=== PATIENT | male | born 1955 | race Caucasian/White ===

== ENCOUNTER 2023-09-23 07:05 | Outpatient (RCR) | payer MEDICARE, SELFPAY | END 2023-09-23 08:50 | disposition home or self-care (01) | LOC: RPT 07:05 | PROVIDERS: ATTENDING PHYSICIAN Physician Assistant Surgical; PRIMARYCARE PHYSICIAN Internal Medicine | DX: Z47.89 Encounter for other orthopedic aftercare (principal); M25.512 Pain in left shoulder (principal); Z73.6 Limitation of activities due to disability | CPT/HCPCS: 97010; 97110; 97140 ==

== ENCOUNTER 2024-10-06 06:22 | Day surgery (SDC) | payer MEDICARE, SELFPAY | END 2024-10-06 09:08 | disposition home or self-care (01) | LOC: GI 06:22 | PROVIDERS: ATTENDING PHYSICIAN Student in an Organized Health Care Education/Training Program | DX: Z12.11 Encounter for screening for malignant neoplasm of colon (principal); K57.30 Diverticulosis of large intestine without perforation or abscess without bleeding; K64.0 First degree hemorrhoids; K64.4 Residual hemorrhoidal skin tags; D12.3 Benign neoplasm of transverse colon; D12.0 Benign neoplasm of cecum; D12.2 Benign neoplasm of ascending colon; K63.5 Polyp of colon; K62.1 Rectal polyp; Z86.0100 Personal history of colon polyps, unspecified | CPT/HCPCS: 45385; 45380; 88305 ==

== ENCOUNTER → 2025-03-12 08:22 | Outpatient (REF) | payer MEDICARE, SELFPAY | LOC: RCS 08:22 | PROVIDERS: ATTENDING PHYSICIAN Psychiatry & Neurology Neurology; FAMILY PHYSICIAN Internal Medicine | DX: R01.1 Cardiac murmur, unspecified (principal); R42 Dizziness and giddiness | CPT/HCPCS: 93005 ==

== ENCOUNTER → 2025-03-18 07:16 | Outpatient (REF) | payer MEDICARE, SELFPAY | LOC: RCS 07:16 | PROVIDERS: ATTENDING PHYSICIAN Psychiatry & Neurology Neurology; FAMILY PHYSICIAN Internal Medicine | DX: R01.1 Cardiac murmur, unspecified (principal) | CPT/HCPCS: 93306 ==

== ENCOUNTER 2025-04-06 14:57 | Inpatient (IN) | payer MEDICARE, SELFPAY ==
[2025-04-06] VITALS (12 sets, daily range): BP systolic 121–153; BP diastolic 72–85
[2025-04-06 12:14] LABS: Glucose - Point of Care 100 mg/dl (70-99)
[2025-04-06 12:36] LABS: Glucose - Point of Care 95 mg/dl (70-99)
[2025-04-06 12:41] LABS: Hematocrit 39.7 % (39.0-52.0); Hemoglobin 13.5 g/dL (13.0-18.0); Mean Corp Hgb Conc. 34.0 g/dL (33.0-37.0); Mean Corpuscular Volume 98.5 fL (80.0-94.0); Nucleated Red Blood Cells % 0 % (-); Platelet Count 179 10^3/uL (130-400); Red Cell Dist. Width 13.0 % (11.5-14.5)
--- NOTE | 2025-04-06 12:43 | CON.NEURO ---
Neuro Assessment/Plan
Assessment
Acute onset dysarthria with right upper and lower extremity tingling and prolonged history of dizziness and slurred speech. Differential diagnosis includes phenytoin toxicity as well as acute ischemic stroke. Due to the patient's low NIH score,
the patient was not a candidate for either tenecteplase or intra-arterial thrombectomy.
Plan
Check CT angiogram, done
Check phenytoin level
Load patient with aspirin then 81 mg routinely
Load patient with clopidogrel 300 mg, then 75 mg routinely
Permissive hypertension up to 220/120
Check MRI of brain
Check lipid profile with goal of LDL less than 70, if LDL greater than 70, start atorvastatin 80 mg daily
Continue phenytoin until levels is available
Total Critical Care Time=�40 minutes.
The neurological system is affected and the action required by me to prevent further deterioration or potential was control over the item listed first in the Impressions and Recommendations section of this note.
I was present and personally examined the patient.� I discussed patient care with other professional health care providers.
Also discussed with family.
Will follow
Consultation
Order
Date of Consultation: 04/06/25
Requesting Provider: Emergency department
Reason for Consult: Stroke alert
Subjective/Objective
Subjective Data
Date of Service: April 06, 2025
Right handed
Patient presented to this [facility]'s emergency department by EMS due to new onset slurred speech and dizziness. The patient also reports that he began experiencing right upper and lower extremity tingling at 1000 hrs. this morning. The patient
began having symptoms 3 weeks ago which time he was having episodic dizziness. This followed his last evaluation by his usual neurologist 4 weeks ago at which time underwent routine reevaluation. In January of this year the patient had an alteration
in his usual phenytoin dosing from brand name to generic at which time his level markedly increased prompting a lowering of his dosing and resolution of symptoms. Symptoms prior to that were a sense of dizziness which was recurrent after seeing his
neurologist.
1 week ago, the patient also had an episode of slurred speech which lasted for short period of time and then spontaneously resolved without residual.
Today, the patient woke up at 0600 hrs. without symptoms developing them as above. The patient has no involvement of the contralateral side. No known modifying factors. The patient is not aware of slurred speech although his who accompanies
him indicates that he is experiencing slurred speech.
Objective Data
Vital Signs
Temp Pulse Resp BP Pulse Ox
36.6 C 82 20 146/81 98
04/06/25 12:12 04/06/25 12:37 04/06/25 12:37 04/06/25 12:37 04/06/25 12:37
Lab Results
04/06/25 12:35
Patient Allergies
No Known Allergies Allergy (Verified 04/19/23 10:45)
CVA Assessment
Onset of Stroke Symptoms
Onset of symptoms known: Yes
Date of onset of symptoms: 04/06/25
Time of onset of symptoms: 10:00
Time pt last seen normal is known: Yes
Date last time pt seen normal: 04/06/25
Time last time pt seen normal: 06:00
NIH Stroke Score
Level of Consciousness: 0 - Alert
LOC Questions: 0-Answers both correctly
LOC Commands: 0-Performs both correctly
Best Horizontal Gaze: 0-Normal
Visual Benítez: 0=Normal, no visual loss
Facial Palsy: 0=Normal, symmetrical
Motor - Right Arm: 0=No drift 10 seconds
Motor - Left Arm: 0=No drift 10 seconds
Motor - Right Le-No drift 5 seconds
Motor - Left Le-No drift 5 seconds
Limb Ataxia: 0-Absent
Sensation: 0-Normal
Best Language: 0-No aphasia
Dysarthria: 1-Mild slurring
Extinction and Inattention: 0-No abnormality
NIH Total Score:: 1
Tenecteplase Contraindications
Inclusion and Exclusion criteria reviewed: Yes
IAT Contraindications: Imaging doesn't show large vessel occlusion as cause of stroke
Review of Systems
-
History Source: Patient
All other systems: Reviewed and negative
EENT: Negative Blurry Vision or Swallowing Difficulty
Respiratory: Negative Trouble Breathing
Cardiac: Negative Chest Pain
Abdomen/GI: Negative Incontinence of Stool
Genitourinary: Negative Incontinence
Musculoskeletal: Negative Back Pain or Neck Pain
Neuro: Negative Dizzy or Headache
Physical Exam
-
General: No Apparent Distress and Appears Stated Age
Eyes: OU Absent Papilledema, Round OU, [place] Conjunctivae and No Ptosis
HEENT: Anicteric and Moist Mucous Membranes
Neck: Full Range of Motion
Respiratory: No Dyspnea
Cardiac: No JVD
GI: Non-distended
Skin: Unremarkable
Extremities: No Clubbing, No Cyanosis and No Edema
Psych: Intact Judgement/Insight
Extended Neurological Exam
Mood & Affect: Mood Unremarkable and Affect Unremarkable
Attention Span & Concentration: Awake, Alert, Interactive and No Difficulty with 2 Step Request
Memory: Unremarkable
Tremor: Hand Tremor Absent and Head Tremor Absent
Speech: Quantity Unremarkable and Dysarthric (Minimally)
Cranial Nerve II: Left Eye: Pupillary Reactivity Unremarkable, Pupillary Size Unremarkable and Visual Benítez Intact
Cranial Nerve II: Right Eye: Pupillary Reactivity Unremarkable, Pupillary Size Unremarkable and Visual Benítez Intact
Cranial Nerves III, IV, : Extraocular Movement: Extraocular Movement Full in all Directions
Cranial Nerve VII: Facial Symmetry: Normal Facial Symmetry
Cranial Nerve VIII: Hearing: Unremarkable Hearing to Normal Conversational Volume
Cranial Nerves IX, X: Palate Movement: Palate Elevation Symmetric
Cranial Nerve XI: Shoulder Shrug: Unremarkable
Cranial Nerve XII: Tongue Protusion: Midline
Muscle Strength, Overall: Full Throughout
Muscle Bulk & Tone: Bulk Unremarkable and Tone Unremarkable
Pronator Drift: No Drift in Upper Extremities
Deep Tendon Reflexes: Unremarkable Throughout
Touch Sensation: Unremarkable
Coordination: Glwfkz-basz-lwdtte Testing Unremarkable
Babinski Sign: Absent Bilaterally
Data Reviewed
-
CT-A: Report Reviewed and Image Reviewed
CT Head: Report Reviewed and Image Reviewed
MRI Head: Ordered
Labs: Report Reviewed
Lipid Profile: Ordered and Report Reviewed
Reviewed with: Physician, Nurse, Patient and Family
Old Records: Summarized
Medications
-
Active Medications
Generic Name Dose Route Start Last Admin
Trade Name Freq PRN Reason Stop Dose Admin
Aspirin 325 mg 04/06/25 12:39
Aspirin 325 Mg Tablet PO 04/06/25 12:40
NOW STA
Aspirin 81 mg 04/07/25 08:00
Aspirin 81 Mg (Enteric Coated) Tablet PO 05/05/25 07:59
DAILY HANNA
Clopidogrel Bisulfate 75 mg 04/07/25 08:00
Clopidogrel 75 Mg Tablet PO 04/27/25 08:01
DAILY HANNA
Clopidogrel Bisulfate 300 mg 04/06/25 12:39
Clopidogrel 300 Mg Tablet PO 04/06/25 12:40
NOW STA
Home Medications
�Medication �Instructions �Recorded
phenytoin sodium extended 100 mg 100 mg PO DAILY 04/17/23
capsule (Dilantin Kapseal)
phenytoin sodium extended 100 mg 200 mg PO HS 04/17/23
capsule (Dilantin Kapseal)
Past History
Past History
ED Past Medical History: Seizures
[2025-04-06] MEDS: ASPIRIN 325 MG PO (12:51)
[2025-04-06] MEDS: PLAVIX 300 MG PO (12:51)
--- NOTE | 2025-04-06 12:54 | HPS.HSE ---
Addendum entered and electronically signed by Mayte Ferrera MD 04/06/25 14:47:
This is an addendum to H&P written by Mg Zee. �Patient seen and examined independently with resident.
70-year-old male past medical history of hyperlipidemia, seizure disorder, BPH, colonic polyps, presenting with slurred speech starting this morning at 10 AM with right arm and leg weakness. �Chronic lightheadedness for 6 weeks worked up with EKG
and echocardiogram. �Echocardiogram showed mild aortic stenosis.
Symptoms improved but continues to have some slurred speech.
Vital signs normal. �EKG unremarkable
Labs unremarkable.
CT head shows no acute intracranial hemorrhage. �Small chronic infarct with encephalomalacia along the superior margin of the right cerebral hemisphere. �4 mm focus of diminished attenuation of the left paramidline central prema. �Suspicious for
small infarct. �CTA head and neck shows small filling defect within the distal left middle cerebral M1 segment with distal blood flow identified opacifying the more distal middle cerebral artery segments consistent with nonocclusive thrombus.
Aspirin and Plavix. �MRI brain. �Check A1c. �Check speech and swallow. �PT OT.
Check orthostatic vital signs due to lightheadedness for past few weeks.
Original Note:
Family Physician
-
Family Physician:
Chief Complaint
-
Slurred speech
History of Present Illness
This is a 70-year-old male with past medical history of hyperlipidemia, seizure disorder, aortic valve stenosis, BPH, colonic polyps who presents to ED complaining of slurred speech that started this morning at 10 AM. History was obtained at
bedside with present as well. Prior to this event, the patient's reports he was last seen normal at his typical baseline. In addition to the slurred speech, patient reports right-sided weakness upper and lower extremity. He denies
numbness, denies tingling sensation. He had no episodes of confusion, denies vision changes. Denies severe headache. Reports he was able to ambulate per usual. Patient reports he has been experiencing lightheadedness for the past 6 weeks. He
was recently evaluated by his neurologist for episodic dizziness with an echocardiogram and ECG for these dizzy spells. Upon presentation to the ED, vitals with BP 138/72, pulse 78, respiratory 16, O2 sats 100% on room air. NIH stroke scale was 1
Medical History
Past Medical History
Past Medical History: Reports Other (Hyperlipidemia, seizure disorder, aortic valve stenosis, BPH, colonic polyps, Glaucoma)
Past Surgical History: Reports None
Social History
Tobacco: Non-smoker
Alcohol: None
Drug: None
Personal:
Living: With Family
Employment: Employed
Family History
Family History: Not pertinent
Allergies / Home Medications
Allergies reflects when Allergies were last updated in [facility].
Home Medications with original date entered in [facility]
Allergy/Medication List:
Allergies
Allergy/AdvReac Type Severity Reaction Status Date / Time
No Known Allergies Allergy Verified 04/19/23 10:45
Home Medications
phenytoin sodium extended 100 mg capsule (Dilantin Extended) 100 mg PO DAILY 04/06/25
phenytoin sodium extended 100 mg capsule (Dilantin Extended) 200 mg PO HS 04/06/25
travoprost 0.004 % eye drops 1 drp BOTH EYES QPM 04/06/25
Review of Systems
-
Constitutional: Reports Other (All review of systems completed and negative except as documented in HPI)
Physical Exam
Vital Signs
Vital Signs
Temp Pulse Resp BP Pulse Ox
98 F 82 20 146/81 98
04/06/25 12:12 04/06/25 12:37 04/06/25 12:37 04/06/25 12:37 04/06/25 12:37
Physical Exam
General: Well Developed, Well Nourished and No Apparent Distress
HEENT: NormoCephalic
Respiratory: Clear; No Wheezes, Rales or Rhonchi
Cardiac: S1/S2, Regular Rhythm and Murmur
GI: Soft, Non Tender, Non Distended and Normal Bowel Sounds
Musculoskeletal: No Edema and Other (5/5 muscular strength bilateral upper and lower extremity)
Skin: Warm
Neuro: Awake, Alert, Oriented and AO x 3; No Slurred Speech or Facial Droop
Psych: Calm
Laboratory Results
-
04/06/25 12:35
Impression/Plan
-
Assessment/plan
#Right-sided weakness and dysarthria concern for CVA/TIA
-CT head without contrast- No acute intracranial hemorrhage. No CT evidence to suggest MCA distribution infarct. Aspect score: 10. Small chronic infarct with encephalomalacia along superior margin of the right cerebellar hemisphere. 4 mm focus of
diminished attenuation in the left paramidline central prema. Suspicious for small infarct, age indeterminate.
-Head and neck CTA-Small filling defect in the distal left middle cerebral artery M1 segment, with distal blood flow identified opacifying the more distal middle cerebral artery segments, consistent with nonocclusive thrombus.
-Neurology input appreciated, no indication for TNK
-Aspirin and Plavix administered in ED
-Continue on Aspirin+Plavix
-Statin therapy
-Check brain MRI
-Check lipids
-PT/OT
-Echo 03/18/2025- No regional wall motion abnormalities are seen. LV ejection fraction is 55-60%. Mild aortic stenosis.
#History of seizures
-Continue phenytoin
#Glaucoma
-Continue Eye drop
CODE STATUS full code
DVT prophylaxis SCDs
[2025-04-06 12:59] LABS: Blood Urea Nitrogen 12 mg/dl (9-20); Calcium 9.0 mg/dl (8.4-10.2); Carbon Dioxide 28 mmol/L (22-30); Chloride 103 mmol/L (98-107); Glucose 96 mg/dl (70-99); Potassium 4.1 mmol/L (3.5-5.1); Sodium 137 mmol/L (135-145); eGFR > 60.00
[2025-04-06 13:25] LABS: HDL Cholesterol 68 mg/dl; LDL Cholesterol, Calculated 156 mg/dl; Very Low Density Lipoprotein 19 mg/dl (0-30)
--- NOTE | 2025-04-06 13:41 | ED.CVA ---
History of Present Illness
General
Chief Complaint: CVA/TIA Symptoms
Source: patient and spouse
Time Seen by Provider: 04/06/25 12:23
Onset of Stroke Symptoms
Onset of symptoms known: Yes
Date of onset of symptoms: 04/05/25
Time of onset of symptoms: 22:00
History of Present Illness
History of Present Illness:
70-year-old male presents with disequilibrium. Has been intermittent for a week but comes and goes. Last episode started last evening late in the evening. Persisted overnight into this morning. Around 10 AM per the patient, 9 AM per the ,
they noted some slurred speech. Patient states he also noted some mild right sided weakness which the did not notice or was not expressed to her. Patient is on Dilantin for remote history of seizures. He had a previous episode of
disequilibrium that was possibly felt to be related to his Dilantin
Past History
Past History
ED Past Medical History: Seizures
ED Past Surgical History: Orthopedic
Review of Systems
Review of Systems
All Other Systems: Not applicable
Respiratory: Reports no symptoms
Cardiac: Reports no symptoms
ABD/GI: Reports no symptoms
Phy Exam
Physical Exam
Physical Exam:
GENERAL: Alert and oriented in no apparent distress
EYE: Orbits normal.
NECK: Supple
CARDIAC: Regular rate and rhythm without any obvious murmurs.
LUNGS: Clear breath sounds,normal
ABDOMEN: Soft, without focal tenderness or distention
NEUROLOGICAL: Alert and oriented , cranial nerves II through XII intact except for mild slurred speech. Slightly poor [id number]-by-qfuk to the right. No drift. Good french comber. Good lower extremity strength. Eye confrontation normal.
SKIN: Warm and dry, no rash or lesion, no discoloration, skin intact.
MUSCULOSKELETAL: No edema,no deformity.Good color
PSYCH: Normal and appropriate interaction.
Scores
NIH Stroke Score
Level of Consciousness: 0 - Alert
LOC Questions: 0-Answers both correctly
LOC Commands: 0-Performs both correctly
Best Horizontal Gaze: 0-Normal
Visual Benítez: 0=Normal, no visual loss
Facial Palsy: 0=Normal, symmetrical
Motor - Right Arm: 0=No drift 10 seconds
Motor - Left Arm: 0=No drift 10 seconds
Motor - Right Le-No drift 5 seconds
Motor - Left Le-No drift 5 seconds
Limb Ataxia: 1-Present in one limb
Sensation: 0-Normal
Best Language: 1-Mild aphasia
Dysarthria: 0-Normal
Extinction and Inattention: 0-No abnormality
NIH Total Score:: 2
Course
Orders/Labs/Results
Orders:
Orders
04/06/25 12:20
CT HEAD/NECK ANG STROKE ALERT Urgent
Comment:
Reason For Exam: R sided weakness, dizziness
04/06/25 12:21
CT HEAD STROKE ALERT W/o Cont Urgent
Comment:
Reason For Exam: R sided weakness, dizziness
04/06/25 12:23
Electrocardiogram (*1) Stat
Reason for Study: Other
Other Reason for Exam: neuro symptoms
Cardiac Monitoring- Treatment ONCE
EKG- Treatment ONCE
IV Insert/Care/Rem.- Treatment PRN
Pulse Ox/cont/shift [RESP] Stat
Quantity: 1
04/06/25 12:35
Basic Metabolic Panel Urgent
Cardiovascular Evaluation Urgent
Comment: CVE ADDED ON BY FLOOR 1PM 04-06-25
Complete Blood Count/With Diff Urgent
Dilantin Urgent
04/06/25 12:39
Aspirin 325 mg PO NOW STA
Clopidogrel Bisulfate [Plavix] 300 mg PO NOW STA
04/06/25 12:42
MR Brain Without Contrast Routine
Comment:
Reason For Exam: ? aphasia
Recent pill cam endoscopy?: No
04/06/25 12:43
Aspirin 325 mg .ROUTE .STK-MED ONE
Clopidogrel Bisulfate [Plavix] 300 mg .ROUTE .STK-MED ONE
04/06/25 13:01
Add On- LAB Urgent
Tests Added?: lipid profile
04/07/25 08:00
Aspirin Low Dose EC [Aspir Low (Enteric Coated)] 81 mg PO DAILY
Clopidogrel Bisulfate [Plavix] 75 mg PO DAILY
Abnormal Lab Results
04/06/25 04/06/25
12:13 12:35
RBC 4.03 L 10^6/uL
(4.70-6.10)
MCV 98.5 H fL
(80.0-94.0)
MCH 33.5 H pg
(27.0-31.0)
Absolute Monos (auto) 0.9 H 10^3/uL
(0.1-0.6)
Monocytes % 11.4 H %
(1.7-9.3)
Total Cholesterol 243 H mg/dl
(50-199)
POC Glucose 100 H mg/dl
(70-99)
04/06/25 12:35
04/06/25 12:35
Vital Signs
Initial and Last Documented VS:
Initial Vital Signs
Temp Pulse Resp BP Pulse Ox
98 F 78 16 138/72 100
04/06/25 12:12 04/06/25 12:12 04/06/25 12:12 04/06/25 12:12 04/06/25 12:12
Last Documented Vital Signs
Temp Pulse Resp BP Pulse Ox
98 F 70 20 139/77 97
04/06/25 12:12 04/06/25 13:00 04/06/25 13:00 04/06/25 13:00 04/06/25 13:41
MDM/Problems Addressed
Differential Diagnosis Includes:
Patient with disequilibrium issue since late last evening. Speech issue started around 9 AM. Symptoms started prior to the window for thrombolytics. Disability relatively low. Discussed at length with the patient and . Doubt Dilantin issue
as his last Dilantin level was within normal limits. Nonocclusive clot in the distal M1. Neurology aware.
*Radiology
Radiology exam reviewed: radiology read reviewed (CT head negative CT angiography shows small filling defect distal left middle cerebral M1 component with distal blood flow identified opacifying the more distal segment consistent with nonocclusive
thrombus)
*Pulse Oximetry
SaO2: 97
Oxygen Mode of Delivery: Room air
Patient hypoxic: no
*EKG
Interpreted by ED Provider?: Yes
Interpretation: abnormal
Comparison EKG: no changes
Heart Rate: 82
Rate: normal
Rhythm: sinus
[place]: normal axis
Interval: first degree heart block
QRS Pattern: normal QRS
Ischemia: no ischemia
*Athletic Events Scorer Interpretation
Rate: normal
Interpretation: normal
Heart Rate: 80
Rhythm: sinus
*Critical Care Note
Total Time (30-74mins, 75-104mins- exclusive of procedures): 40
Data Reviewed
Review of Other/Old Records Reveals: Labs and Records
ED Attending Note
-
Portions of this chart may have been created with voice recognition software.� Occasional wrong word or��sound alike� substitutions may have occurred due to the inherent limitations of voice recognition software.
Discharge Plan
Departure
Patient Disposition: Admit
Date of Disposition: 04/06/25
Time of Disposition: 13:17
Presentation/result/management discussed w/ accepting MD/DO: Hospitalist
Discharge Problem:
Probable CVA
Prescriptions:
No Action
travoprost 0.004 % Drops
1 drp BOTH EYES QPM
phenytoin sodium extended [Dilantin Extended] 100 mg Capsule
100 mg PO DAILY
phenytoin sodium extended [Dilantin Extended] 100 mg Capsule
200 mg PO HS
Referrals:
Kamran Min MD [Family Provider, Internal Medicine]
Interventions
Interventions:
*Risk Screen - Suicide Last Done: 04/06/25 12:15
*Neglect/Abuse Screening Last Done: 04/06/25 12:15
ED- Pulmonary Assessment Last Done: 04/06/25 12:36
ED- Neurological Assessment Last Done: 04/06/25 12:21
ED- Cardiac Assessment Last Done: 04/06/25 12:36
ED Swallowing Screen Last Done: 04/06/25 12:39
Discharge Date and Time
Print Language: CZECH
[2025-04-06 15:13] LABS: TSH 0.73 uIU/ml (0.47-4.68)
[2025-04-06] MEDS: LIPITOR PO (17:42)
[2025-04-06] MEDS: LIPITOR 80 MG PO (18:15)
[2025-04-06] MEDS: DILANTIN 200 MG PO (21:56)
--- NOTE | 2025-04-06 23:51 | PTCARENOTE ---
Pt transferred to 4W. Pt able to walk from stretcher to bed. No c/o pain. NIH 1 for mild slurring. AAOx3 Pt oriented to room and pleasant. Safety measures in place, call guevara within reach.
[2025-04-07] VITALS (8 sets, daily range): BP systolic 118–156; BP diastolic 72–89; PULSE 71; O2SAT 97
[2025-04-07 08:24] LABS: Hematocrit 42.0 % (39.0-52.0); Hemoglobin 14.4 g/dL (13.0-18.0); Mean Corp Hgb Conc. 34.3 g/dL (33.0-37.0); Mean Corpuscular Volume 98.4 fL (80.0-94.0); Platelet Count 198 10^3/uL (130-400); Red Cell Dist. Width 13.0 % (11.5-14.5)
[2025-04-07] MEDS: ASPIR LOW (ENTERIC COATED) 81 MG PO (08:28)
[2025-04-07] MEDS: PLAVIX 75 MG PO (08:28)
[2025-04-07] MEDS: DILANTIN 100 MG PO (08:28)
[2025-04-07 09:03] LABS: Blood Urea Nitrogen 9 mg/dl (9-20); Calcium 9.0 mg/dl (8.4-10.2); Carbon Dioxide 27 mmol/L (22-30); Chloride 105 mmol/L (98-107); Glucose 106 mg/dl (70-99); Potassium 4.4 mmol/L (3.5-5.1); Sodium 139 mmol/L (135-145); eGFR > 60.00
--- NOTE | 2025-04-07 09:47 | W.PN.NEURO.1 ---
Addendum entered and electronically signed by Herb Lucero MD 04/07/25 11:02:
Studies reviewed.
I have personally examined the patient. I reviewed and agree with the PLATE MILL HAND's Note.
My addenda:
Awake, alert, interactive. No acute distress.
Speech mildly thick.
Follows 2-step requests w/o difficulty. No tremor.
Extra-ocular movements grossly intact.
Facial movements full and symmetric. Hearing intact to normal conversational volume.
Normal UE movements bilaterally.
Neck: full ROM.
Chest: no dyspnea
Heart: no JVD
Ext: (-) Clubbing, (-) Cyanosis, (-) Edema
IMPRESSIONS/RECOMMENDATIONS:
Abrupt onset of change in speech and tingling in right upper and lower extremity with prior history of seizures
MRI of brain is demonstrative of posterior circulation acute ischemic strokes largest of which is in the left prema
Provide dual antiplatelet therapy for 21 days then aspirin 325 mg due to intracranial stenosis at M1
Continue phenytoin as currently dosed at 100 mg in the morning and 200 mg at bedtime
Encouraged patient to utilize atorvastatin 80 mg daily due to elevated LDL at 156, goal of less than 70
Permissive hypertension for the first 24 hours then the goal of normotension
Outpatient cardiac monitoring (implantable public relations counselor)
D/W patient
All questions answered.
Will continue to follow as outpatient.
Original Note:
Today's Communication / Plan
-
Reviewed CTA/MRI findings with patient, showing acute strokes
phenytoin level- was WNL. Continue phenytoin
monitor for seizure activity
continue ASA and clopidogrel x21 days then continue ASA 325 for intracranial stenosis noted on CTA head and neck
goal now normotension
goal normoglycemia, HgbA1c pending
LDL 156, goal less than 70, if LDL greater than 70, strongly suggest atorvastatin 80 mg daily, patient has been hesitant
continue PT/OT ans speech evaluations
would suggest to monitor for at least 24 hours given large pontine stroke, but will defer to hospitalist
DVT prophylaxis
Neuro Assessment/Plan
Assessment
Acute onset dysarthria with right upper and lower extremity tingling and prolonged history of dizziness and slurred speech. Differential diagnosis includes phenytoin toxicity as well as acute ischemic stroke. Due to the patient's low NIH score,
the patient was not a candidate for either tenecteplase or intra-arterial thrombectomy.
MRI of the brain: 04/06/2025
There are multiple foci of restricted diffusion involving the left central aspect of the prema, left cerebellar hemisphere, left occipital lobe and medial left parietal lobe consistent with acute infarctions. There is peripheral blooming artifact
associated with the left parietal infarction for which petechial hemorrhage is possible.
CTA head and neck 04/06/2025
Small filling defect in the distal left middle cerebral artery M1 segment, with distal blood flow identified opacifying the more distal middle cerebral artery segments, consistent with nonocclusive thrombus.
Results sent by [employer] to Dr. Lyons at 12:56 PM on 04/06/2025.
Combination of calcified and noncalcified plaque involving the carotid bulb, ICA origin, and proximal ICA, bilaterally. Estimated luminal diameter reduction of the proximal right ICA approaching 50%. Estimated luminal diameter reduction in the
proximal right ICA is less than 50%.
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 There is contrast enhancement of the more distal basilar artery, uncertain if this represents flow through a severely stenotic segment or retrograde
flow. No aneurysm.
Plan
Reviewed CTA/MRI findings with patient
phenytoin level- was WNL. Continue phenytoin
monitor for seizure activity
continue ASA and clopidogrel x21 days then continue ASA 325 for intracranial stenosis noted on CTA head and neck
goal now normotension
goal normoglycemia, HgbA1c pending
LDL 156, goal less than 70, if LDL greater than 70, strongly suggest atorvastatin 80 mg daily, patient has been hesitant
continue PT/OT ans speech evaluations
would suggest to monitor for at least 24 hours given large pontine stroke, but will defer to hospitalist
DVT prophylaxis
Subjective/Objective
Subjective Data
Date of Service: April 07, 2025
Patient seen today at bedside. He reports he is feeling an improvement in her right upper extremity weakness. He reports he still has some dexterity issues with his right hand. Dizziness has improved. Speech is also improved but is not quite at
baseline.
Objective Data
Vital Signs
Temp Pulse Resp BP Pulse Ox
97.9 F 64 16 118/75 96
04/07/25 07:09 04/07/25 07:09 04/07/25 07:09 04/07/25 07:09 04/07/25 07:09
Lab Results
04/07/25 07:49
04/07/25 07:49
Sodium 139 mmol/L (135-145) 04/07/25 07:49
Potassium 4.4 mmol/L (3.5-5.1) 04/07/25 07:49
BUN 9 mg/dl (9-20) 04/07/25 07:49
Glucose 106 mg/dl (70-99) H 04/07/25 07:49
Calcium 9.0 mg/dl (8.4-10.2) 04/07/25 07:49
LDL Cholesterol, Calc Cancelled 04/06/25 12:40
Patient Allergies
No Known Allergies Allergy (Verified 04/19/23 10:45)
Review of Systems
-
History Source: Patient
Constitutional: No Symptoms
EENT: No Symptoms Reported
Respiratory: No Symptoms
Cardiac: No Symptoms
Abdomen/GI: No Symptoms
Genitourinary: No Symptoms
Musculoskeletal: Muscle Weakness (mild right had reduced dexterity)
Skin: No Symptoms
Neuro: Weakness (right hand dexterity mildly reduced)
Endocrine: No Symptoms
Hematologic / Lymphatic: No Symptoms
Physical Exam
-
General: Well Developed, Well Nourished and No Apparent Distress
Eyes: Round OU
HEENT: Normocephalic
Neck: Full Range of Motion
Respiratory: No Dyspnea
GI: Soft
Skin: Unremarkable
Extremities: No Clubbing
Psych: Unremarkable
Extended Neurological Exam
Mood & Affect: Mood Unremarkable
Attention Span & Concentration: Awake, Alert, Interactive and No Difficulty with 2 Step Request
Memory: Unremarkable
Tremor: Hand Tremor Absent and Head Tremor Absent
Involuntary Movement: None
Speech: Quantity Unremarkable and Rate of Production Unremarkable; Negative Quality Unremarkable (patient reports mild slurring)
Cranial Nerve II: Left Eye: Visual Benítez Grossly Intact
Cranial Nerve II: Right Eye: Visual Benítez Grossly Intact
Cranial Nerves III, IV, : Extraocular Movement: Extraocular Movement Full in all Directions
Cranial Nerve VII: Facial Symmetry: Normal Facial Symmetry
Cranial Nerve VIII: Hearing: Unremarkable Hearing to Normal Conversational Volume
Muscle Bulk & Tone: Bulk Unremarkable and Tone Unremarkable
Pronator Drift: Drift in Right Upper Extremity
Coordination: [id number] Testing Unremarkable
Data Reviewed
-
CT-A: Report Reviewed
MRI Head: Report Reviewed and Image Reviewed
Labs: Pending and Report Reviewed
Lipid Profile: Report Reviewed
HgbA1C: Pending
Reviewed with: Physician and Patient
--- NOTE | 2025-04-07 10:35 | PTOTSP ---
Speech Language Pathology
Pt seen for speech/language evaluation via the Quick Aphasia Battery (QAB), form 1. No difficulty noted on QAB with overall score of 10.00, indicative of skills WNL. Mild dysarthria noted with incoordinated diadochokinetic (DDK) rates. Pt was
100% intelligible in both known and unknown contexts.
Pt also seen for clinical bedside swallow evaluation. P.O. trials of regular solids and thin liquids provided. Adequate mastication, bolus formation, and A-P transit noted with no oral residue. No overt signs of aspiration.
Recommend:
(1) Regular solids/thin liquids
(2) General aspiration precautions
(3) Meds as tolerated
(4) Outpatient FORK LIFT TRUCK OPERATOR at discharge. PT/OT also recommending outpatient therapy (provided pt with brochure)
(5) FORK LIFT TRUCK OPERATOR to continue to follow for dysarthria tx
--- NOTE | 2025-04-07 11:16 | CM ---
Chart reviewed. Met with pt and at bedside. IA completed. IMM given and form placed on chart.
. Lives with spouse with 2 story house with 2 steps at the entrance to the home. BR on first floor. No hx of home care or SNF. Has been to [facility] in the past. Independent with ADLs and activities. Confirmed PCP, Rx, insurance and drug
coverage. Inn insecurities identified.
PT/OT rec outpatient therapy. Pt and made aware of PT/OT recommendation; They have chosen [facility].
Plan: Home with outpatient therapy
PCP: Kamran Min
Rx: [facility] on [address]
--- NOTE | 2025-04-07 12:06 | W.PN.HOSP.TC ---
Today's Communication/Plan
-
Assessment / Plan
Assessment / Plan
General: No Apparent Distress, Comfortable and Conversant
HEENT: NormoCephalic, Moist mucous membranes, Atraumatic
Respiratory: Clear and Non Labored Respirations
Cardiac: S1/S2 and Regular Rhythm; No Rub or Gallop
GI: Soft, Non Tender, Non Distended and Normal Bowel Sounds
Musculoskeletal: No Edema, no deformity
Skin: Warm and dry
: NO Larsen
Neuro: Awake, Alert, mild right pronator drift
Psych: Calm and Intact Judgment/Insight
Mr. Hansen is a 70-year-old male with medical history of seizure disorder, aortic stenosis, and enlarged prostate who presented with acute onset slurring of speech and tingling in his right upper and lower extremities. 1 week prior to arrival he
had a similar episode of slurred speech which resolved spontaneously after short period of time. He had intermittent episodes of dizziness approximately 3 weeks prior to arrival. Considering the duration of his symptoms he was outside of the
window for thrombolytics. He was admitted for further evaluation and management of acute/subacute stroke.
Acute CVA:
- MRI confirms multiple foci of restricted diffusion consistent with acute infarctions involving the left prema, left cerebellar hemisphere, left occipital lobe, and medial left parietal lobe
- Recent echocardiogram 03/18/2025 unremarkable other than redemonstration of mild aortic stenosis with trace aortic regurgitation, preserved ejection fraction and no intramural thrombus identified
- Continue telemetry monitoring, will need outpatient cardiac monitoring
-Continue DAPT with aspirin and Plavix for 21 days, then aspirin 325 daily thereafter
- High intensity statin therapy with atorvastatin 80 mg nightly
- PT/OT recommending home therapy
- Will monitor for the next 24 hours considering extent of infarcts
- Permissive hypertension for now
DVT prophylaxis: SCDs
CODE STATUS: Full code
Total time spent on today's encounter was 52 minutes
Anticipated Discharge: 24 - 48 hours
Subjective/Interval History
-
Date of Service: April 07, 2025
Patient was seen and examined at bedside this morning. Feeling well, presenting with slurred speech and right-sided weakness have significantly improved. MRI positive for multifocal left-sided infarcts including the prema.
Objective Data
-
Labs:
Laboratory Results
04/07/25
07:49
WBC 8.1
Hgb 14.4
Hct 42.0
Plt Count 198
Sodium 139
Potassium 4.4
Chloride 105
Carbon Dioxide 27
BUN 9
Creatinine 0.7
Glucose 106 H
Calcium 9.0
Vital Signs:
Vital Signs
Temp Pulse Resp BP Pulse Ox
99.5 F 74 16 137/89 94
04/07/25 11:03 04/07/25 11:03 04/07/25 11:03 04/07/25 11:03 04/07/25 11:03
Review of Systems
-
History Source: Patient
All other systems: Reviewed and negative
Physical Exam
-
General: No Apparent Distress
[2025-04-07 14:53] LABS: Glycohemoglobin (HgbA1c) 5.0 % (4.0-5.6)
[2025-04-07] MEDS: LIPITOR 80 MG PO (17:26)
[2025-04-07] MEDS: DILANTIN 200 MG PO (21:16)
[2025-04-08 03:00] VITALS: BP 107/69
[2025-04-08 08:00] VITALS: BP 139/78
[2025-04-08] MEDS: PLAVIX 75 MG PO (08:05)
[2025-04-08] MEDS: DILANTIN 100 MG PO (08:05)
[2025-04-08] MEDS: ASPIR LOW (ENTERIC COATED) 81 MG PO (08:05)
--- NOTE | 2025-04-08 09:04 | W.PN.NEURO.1 ---
Today's Communication / Plan
-
Continue phenytoin
continue ASA and clopidogrel x21 days then continue ASA 325 milligrams daily for intracranial stenosis noted on CTA head and neck
Provide atorvastatin 80 mg daily, patient has been hesitant
Neuro Assessment/Plan
Assessment
MRI of the brain: 04/06/2025
There are multiple foci of restricted diffusion involving the left central aspect of the prema, left cerebellar hemisphere, left occipital lobe and medial left parietal lobe consistent with acute infarctions. There is peripheral blooming artifact
associated with the left parietal infarction for which petechial hemorrhage is possible.
CTA head and neck 04/06/2025
Small filling defect in the distal left middle cerebral artery M1 segment, with distal blood flow identified opacifying the more distal middle cerebral artery segments, consistent with nonocclusive thrombus.
Combination of calcified and noncalcified plaque involving the carotid bulb, ICA origin, and proximal ICA, bilaterally. Estimated luminal diameter reduction of the proximal right ICA approaching 50%. Estimated luminal diameter reduction in the
proximal right ICA is less than 50%.
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 There is contrast enhancement of the more distal basilar artery, uncertain if this represents flow through a severely stenotic segment or retrograde
flow. No aneurysm.
Acute onset dysarthria with right upper and lower extremity tingling and prolonged history of dizziness and slurred speech. Due to posterior circulation acute ischemic stroke which in turn was due to intracranial stenosis
Plan
Continue phenytoin
monitor for seizure activity
continue ASA and clopidogrel x21 days then continue ASA 325 milligrams daily for intracranial stenosis noted on CTA head and neck
goal normotension
goal normoglycemia
Provide atorvastatin 80 mg daily, patient has been hesitant
continue PT/OT ans speech evaluations
DVT prophylaxis
Patient should return to his usual outpatient neurologist.
Subjective/Objective
Subjective Data
Date of Service: April 08, 2025
Patient reports continued improvement in right hand movement
Objective Data
Vital Signs
Temp Pulse Resp BP Pulse Ox
37.3 C 74 16 139/78 93
04/08/25 08:00 04/08/25 08:00 04/08/25 08:00 04/08/25 08:00 04/08/25 08:00
Lab Results
04/07/25 07:49
04/07/25 07:49
Sodium 139 mmol/L (135-145) 04/07/25 07:49
Potassium 4.4 mmol/L (3.5-5.1) 04/07/25 07:49
BUN 9 mg/dl (9-20) 04/07/25 07:49
Glucose 106 mg/dl (70-99) H 04/07/25 07:49
Calcium 9.0 mg/dl (8.4-10.2) 04/07/25 07:49
LDL Cholesterol, Calc Cancelled 04/06/25 12:40
Patient Allergies
No Known Allergies Allergy (Verified 04/19/23 10:45)
Review of Systems
-
History Source: Patient
All other systems: Reviewed and negative
Neuro: Weakness (right hand dexterity mildly reduced); Negative Speech Problem
Physical Exam
-
General: No Apparent Distress and Appears Stated Age
Eyes: Round OU, [place] Conjunctivae and No Ptosis
HEENT: Anicteric and Moist Mucous Membranes
Neck: Full Range of Motion
Respiratory: No Dyspnea
Cardiac: No JVD
GI: Non-distended
Skin: Unremarkable
Extremities: No Clubbing, No Cyanosis and No Edema
Psych: Intact Judgement/Insight
Extended Neurological Exam
Mood & Affect: Mood Unremarkable and Affect Unremarkable
Attention Span & Concentration: Awake, Alert and Interactive
Memory: Unremarkable
Tremor: Hand Tremor Absent and Head Tremor Absent
Speech: Quantity Unremarkable and Dysarthric (Mildly, intermittently)
Cranial Nerve II: Left Eye: Pupillary Size Unremarkable and Visual Benítez Grossly Intact
Cranial Nerve II: Right Eye: Pupillary Size Unremarkable and Visual Benítez Grossly Intact
Cranial Nerves III, IV, : Extraocular Movement: Grossly Intact
Cranial Nerve VII: Facial Symmetry: Normal Facial Symmetry
Cranial Nerve VIII: Hearing: Unremarkable Hearing to Normal Conversational Volume
Cranial Nerve XI: Shoulder Shrug: Unremarkable
Muscle Strength, Overall: Spontaneously Moves
Muscle Bulk & Tone: Bulk Unremarkable and Tone Unremarkable
Touch Sensation: Unremarkable
Coordination: Reaches for Objects without Difficulty
Data Reviewed
-
MRI Head: Report Reviewed
Labs: Report Reviewed
Reviewed with: Nurse Practioner and Patient
Old Records: Summarized
--- NOTE | 2025-04-08 11:00 | W.DCSUMMARY ---
Discharge Summary
Discharge Data
Date of Admission: 04/06/25
Date of Discharge: 04/08/25
Total time spent discharging patient (in min): 56
-
Pending Results: No
Hospital Course
Mr. Hansen is a 70-year-old male with medical history of seizure disorder, aortic stenosis, and enlarged prostate who presented with acute onset slurring of speech and tingling in his right upper and lower extremities. 1 week prior to arrival he
had a similar episode of slurred speech which resolved spontaneously after short period of time. He had intermittent episodes of dizziness approximately 3 weeks prior to arrival. Considering the duration of his symptoms he was outside of the
window for thrombolytics. He was admitted for further evaluation and management of acute/subacute stroke.
MRI confirmed multiple foci of restricted diffusion consistent with acute infarctions involving the left prema, left cerebellar hemisphere, left occipital lobe, and medial left parietal lobe. He was started on dual antiplatelet therapy with aspirin
and Plavix which he will continue for 21 days, after which he will continue on full-strength aspirin (324 mg) daily. He will also be continued on high intensity statin therapy indefinitely. His recent echocardiogram from 03/18/2025 was unremarkable
other than mild aortic stenosis and trace aortic regurgitation, ejection fraction was preserved and no intramural thrombus was identified. He will need outpatient follow-up with cardiology to arrange ambulatory heart monitoring for potential
arrhythmias which may have contributed to his acute stroke. He was evaluated by physical and Occupational Therapy who recommended home therapy after discharge. He should continue his home phenytoin and follow-up closely with his primary
neurologist. His total cholesterol was 243 on initial labs and will need ongoing monitoring with his primary care physician. His hemoglobin A1c was within normal limits at 5.0%. At time of hospital discharge he was medically stable.
General: No Apparent Distress, Comfortable and Conversant
HEENT: NormoCephalic, Moist mucous membranes, Atraumatic
Respiratory: Clear and Non Labored Respirations
Cardiac: S1/S2 and Regular Rhythm; No Rub or Gallop
GI: Soft, Non Tender, Non Distended and Normal Bowel Sounds
Musculoskeletal: No Edema, no deformity
Skin: Warm and dry
: NO Larsen
Neuro: Awake, Alert, mild right pronator drift
Psych: Calm and Intact Judgment/Insight
Discharge Plan
-
Patient Disposition: Home (Routine Discharge)
Discharge Diagnosis/Procedures: Acute CVA
Activity Restrictions/Additional Instructions:
Mr. Hansen is a 70-year-old male with medical history of seizure disorder, aortic stenosis, and enlarged prostate who presented with acute onset slurring of speech and tingling in his right upper and lower extremities. 1 week prior to arrival he
had a similar episode of slurred speech which resolved spontaneously after short period of time. He had intermittent episodes of dizziness approximately 3 weeks prior to arrival. Considering the duration of his symptoms he was outside of the
window for thrombolytics. He was admitted for further evaluation and management of acute/subacute stroke.
MRI confirmed multiple foci of restricted diffusion consistent with acute infarctions involving the left prema, left cerebellar hemisphere, left occipital lobe, and medial left parietal lobe. He was started on dual antiplatelet therapy with aspirin
and Plavix which he will continue for 21 days, after which he will continue on full-strength aspirin (324 mg) daily. He will also be continued on high intensity statin therapy indefinitely. His recent echocardiogram from 03/18/2025 was unremarkable
other than mild aortic stenosis and trace aortic regurgitation, ejection fraction was preserved and no intramural thrombus was identified. He will need outpatient follow-up with cardiology to arrange ambulatory heart monitoring for potential
arrhythmias which may have contributed to his acute stroke. He was evaluated by physical and Occupational Therapy who recommended home therapy after discharge. He should continue his home phenytoin and follow-up closely with his primary
neurologist. His total cholesterol was 243 on initial labs and will need ongoing monitoring with his primary care physician. His hemoglobin A1c was within normal limits at 5.0%. At time of hospital discharge he was medically stable.
Referrals:
Kamran Min MD [Family Provider, Internal Medicine]
Hernan Boogie MD [Active, Cardiology]
Referral Note: s/p acute CVA, needs eval for ambulatory cardiac monitoring
Prescriptions:
New
aspirin 81 mg Tablet,Delayed Release (Dr/Ec)
81 mg PO DAILY 21 Days Qty: 21 0RF
atorvastatin 80 mg Tablet
80 mg PO QPM 90 Days Qty: 90 0RF
clopidogrel 75 mg Tablet
75 mg PO DAILY 21 Days Qty: 21 0RF
Continued
travoprost 0.004 % Drops
1 drp BOTH EYES QPM
phenytoin sodium extended [Dilantin Extended] 100 mg Capsule
100 mg PO DAILY
phenytoin sodium extended [Dilantin Extended] 100 mg Capsule
200 mg PO HS
Discharge Orders:
Discharge Patient (As Directed); Ordered 04/08/25
Ordered By: Bob Rivas
Discharge Date and Time
Print Language: [place]OT[place]
--- NOTE | 2025-04-08 11:43 | CM ---
Chart reviewed. Met pt and spouse at bedside. waiting to receive script for O/T therapy.
Plan: Discharge today with O/P therapy
[2025-04-08 11:47] VITALS: BP 128/74
--- NOTE | 2025-04-08 11:50 | PTCARENOTE ---
Discharge orders reviewed with patient. Written and verbal instructions provided for post-CVA and how to identify stroke symptoms. Pt and demonstrated understanding by teach back. Wheelchair escort provided to 's car.
== END 2025-04-08 11:51 | disposition home or self-care (01) | DRG 65 ==
LOC: 4 WEST ACU 14:57
PROVIDERS: Student in an Organized Health Care Education/Training Program; ADMITTING PHYSICIAN Hospitalist; ATTENDING PHYSICIAN Internal Medicine; CONSULT PHYSICIAN Psychiatry & Neurology Neurology; EMERGENCY PHYSICIAN Emergency Medicine; FAMILY PHYSICIAN Internal Medicine
DX: I63.89 Other cerebral infarction (principal); G81.91 Hemiplegia, unspecified affecting right dominant side; R47.1 Dysarthria and anarthria; I06.0 Rheumatic aortic stenosis; E78.5 Hyperlipidemia, unspecified; H40.9 Unspecified glaucoma; G40.909 Epilepsy, unspecified, not intractable, without status epilepticus; Z79.02 Long term (current) use of antithrombotics/antiplatelets; Z79.82 Long term (current) use of aspirin; Z79.899 Other long term (current) drug therapy
CPT/HCPCS: 70450; 70496; 70498; 70551; 80048; 80061; 80185; 82962; 83036; 84443; 85025; 85027; 92523; 92610; 93005; 97163; 97167; 99291; Q9967

== ENCOUNTER 2025-04-23 06:30 | Outpatient (RCR) | payer MEDICARE, SELFPAY | END 2025-04-23 23:59 | disposition home or self-care (01) | LOC: RPT 06:30 | PROVIDERS: ATTENDING PHYSICIAN Internal Medicine | DX: I63.9 Cerebral infarction, unspecified (principal); I69.398 Other sequelae of cerebral infarction (principal); Z73.6 Limitation of activities due to disability | CPT/HCPCS: 97110; 97112; 97163; 97167; 97530; 97537 ==

== ENCOUNTER 2025-05-25 09:17 | Outpatient (RCR) | payer MEDICARE, SELFPAY | END 2025-05-25 23:59 | disposition home or self-care (01) | LOC: RPT 09:17 | PROVIDERS: ATTENDING PHYSICIAN Internal Medicine | DX: I63.9 Cerebral infarction, unspecified (principal); Z73.6 Limitation of activities due to disability; I69.328 Other speech and language deficits following cerebral infarction; I69.398 Other sequelae of cerebral infarction | CPT/HCPCS: 92507; 92522; 97110; 97112; 97116; 97530; 97537 ==

== ENCOUNTER 2025-06-21 08:31 | Outpatient (RCR) | payer MEDICARE, SELFPAY | END 2025-06-21 23:59 | disposition home or self-care (01) | LOC: RPT 08:31 | PROVIDERS: ATTENDING PHYSICIAN Internal Medicine | DX: I69.328 Other speech and language deficits following cerebral infarction (principal); Z73.6 Limitation of activities due to disability; I69.398 Other sequelae of cerebral infarction; I63.9 Cerebral infarction, unspecified | CPT/HCPCS: 92507; 97110; 97530; 97535 ==

== ENCOUNTER 2025-07-07 06:49 | Day surgery (SDC) | payer MEDICARE, SELFPAY ==
--- NOTE | 2025-07-07 09:05 | ITS.CL.IMPLP ---
Mechanical Commissioning Engineer - Implant Loop
Implant Loop
Procedure Report:
LINQ IMPLANTED LOOP RECORDER
Date of Procedure: July 07, 2025
Primary Care Physician: Dr. Kamran Min
Primary Internet Merchant: Dr. Lars Salguero
Proocedure performed:
1. Implant LINQ loop recorder
Indication for procedure: Cryptogenic stroke
Description of procedure: After informed consent was obtained,'time out' was called and confirmed, the patient was prepped and draped in a sterile fashion. Lidocaine with epi was used for local anesthesia. A punch incision was made in the fourth
intercostal space midclavicular line. The LINQ device was placed using the placement tool. A single 3-0 absorbable stitch was placed to close the skin track. The punch site was covered with steri-strips.
Complications: None
CONCLUSIONS/RECOMMENDATIONS:
1. Successful placement of LINQ loop recorder
2. Follow-up as scheduled.
== END 2025-07-07 08:30 | disposition home or self-care (01) ==
LOC: CATH 06:49
PROVIDERS: ATTENDING PHYSICIAN Internal Medicine Interventional Cardiology; FAMILY PHYSICIAN Internal Medicine; OTHER PHYSICIAN Internal Medicine Cardiovascular Disease
DX: Z09 Encounter for follow-up examination after completed treatment for conditions other than malignant neoplasm (principal); Z79.82 Long term (current) use of aspirin; Z79.899 Other long term (current) drug therapy; Z86.73 Personal history of transient ischemic attack (TIA), and cerebral infarction without residual deficits; I48.91 Unspecified atrial fibrillation
CPT/HCPCS: 33285; C1764

== ENCOUNTER → 2025-07-29 11:32 | Outpatient (REF) | payer MEDICARE, SELFPAY | LOC: DHSLP 11:32 | PROVIDERS: ATTENDING PHYSICIAN Internal Medicine; FAMILY PHYSICIAN Internal Medicine | DX: G47.33 Obstructive sleep apnea (adult) (pediatric) (principal) | CPT/HCPCS: 95800 ==